=== PATIENT | male | born 1980 | race Two or more races ===

== ENCOUNTER 2016-07-01 15:09 | Emergency (ER) | payer SELFPAY ==
[~2016-07-01] VITALS: Ht 188 cm; Wt 86.2 kg
[2016-07-01 15:19] VITALS: BP 136/81
[2016-07-01] MEDS ORDERED: LIDOCAINE 1%-EPI 1:100,000 50 ML VIAL IJ ONE (16:30)
== END 2016-07-01 17:06 | disposition home or self-care (01) ==
LOC: ER 15:12
DX: L02.212 Cutaneous abscess of back [any part, except buttock and flank] (principal)
CPT/HCPCS: 10060; 99283; A4606; A6402; A6407; J3490; Z7610

== ENCOUNTER 2016-07-03 15:30 | Emergency (ER) | payer SELFPAY ==
[~2016-07-03] VITALS: Ht 188 cm; Wt 86.2 kg
[2016-07-03 15:57] VITALS: BP 120/66
== END 2016-07-03 17:49 | disposition home or self-care (01) ==
LOC: ER 15:31
DX: L02.212 Cutaneous abscess of back [any part, except buttock and flank] (principal); L72.3 Sebaceous cyst; B99.9 Unspecified infectious disease
CPT/HCPCS: A4606; Z7610